=== PATIENT | male | born 1995 | race Caucasian/White ===

== ENCOUNTER 2023-06-26 16:24 | Emergency (ER) | payer BC, SELFPAY ==
[2023-06-26 16:28] VITALS: BP 186/100
--- NOTE | 2023-06-26 18:48 | ED.GENMED ---
History of Present Illness
General
Chief Complaint: Musculo-Skeletal Complaint
Source: patient
Exam Limitations: none
Time Seen by Provider: 06/26/23 18:23
Nursing documentation reviewed up to this point in time: agreed with
Travel History
Have you had any contact with someone who has COVID-19?: No
Do you have any symptoms of coronavirus? Fever > 100 degrees, chills, cough, shortness of breath, sore throat, loss of taste or smell, muscle aches, or headache?: No
History of Present Illness
History of Present Illness:
27-year-old male with no past medical history states at 3 PM today he was walking in the park when he developed lydq-poi-pvfdont feeling in his left upper arm and then shooting elcp-tfq-yfdoqbk feeling down the arm into the hand. This slowly
subsided and at this time he has just mild residual for rpin-pbz-tdsnznl in the inner aspect of his left forearm and his fingers.
He has had similar episodes in the past in the opposite arm.
He denies neck pain or any recent overuse or injury.
Past History
Past History
ED Past Medical History: None
ED Past Surgical History: None
Social History
Tobacco: Non-smoker
Alcohol: None
Drug: Marijuana
Personal: Single
Living: with family
Employment: Employed
Review of Systems
Review of Systems
Allergies reviewed?: Yes
All Other Systems: ROS reviewed and negative except as documented in HPI and ROS
Respiratory: Denies trouble breathing
Cardiac: Denies chest pain
ABD/GI: Denies abdominal pain or nausea
Musculoskeletal: Denies joint swelling or neck pain
Skin: Reports no symptoms
Neurological: Reports other (Qxkj-qtq-bgqmybk feeling down left arm, resolving); Denies weakness
Phy Exam
Physical Exam
Physical Exam:
GENERAL: No acute distress. A&Ox3.
CONSTITUTIONAL: Afebrile.
EYES: Clear, conjunctivae normal
Neck: Supple
ENMT: moist mucus membranes, Pharynx nl
RESPIRATORY: Regular respirations, nonlabored, lungs clear.
CARDIOVASCULAR: Regular rate and rhythm, no murmurs, no rubs.
MUSCULOSKELETAL: No spinal bony tenderness, neck with full range of motion and nontender to palpation. Full range of motion of both upper extremities, . Strength equal bilaterally 5/5. Moves with ease. Well perfused.
SKIN: Warm, dry, pink
PSYCH: Normal mood and affect. Well kept, interactive and appropriate
NEUROLOGIC: Awake, alert and oriented. No focal neurological deficits
Course
Orders/Labs/Results
Orders:
Orders
06/26/23 16:29
EKG [Electrocardiogram (*1)] Urgent
Reason for Study: Other
Other Reason for Exam: arm numbness
EKG- Treatment ONCE
Vital Signs
Initial and Last Documented VS:
Initial Vital Signs
Temp Pulse Resp BP Pulse Ox
98.8 F 96 17 186/100 99
06/26/23 16:28 06/26/23 16:28 06/26/23 16:28 06/26/23 16:28 06/26/23 16:28
Last Documented Vital Signs
Temp Pulse Resp BP Pulse Ox
98.8 F 89 16 153/89 99
06/26/23 16:28 06/26/23 18:55 06/26/23 18:55 06/26/23 18:55 06/26/23 18:55
MDM/Problems Addressed
Differential Diagnosis Includes:
Cervical radiculopathy,
MDM/Problems Addressed:
27-year-old male with no past medical history states at 3 PM today he was walking in the park when he developed rsah-nxb-ephqymi feeling in his left upper arm and then shooting dpdc-gnj-xhmypvs feeling down the arm into the hand. This slowly
subsided and at this time he has just mild residual for dyan-mup-kbhpuic in the inner aspect of his left forearm and his fingers.
He has had similar episodes in the past in the opposite arm.
He denies neck pain or any recent overuse or injury.
EKG NSR
06/26/2023 1853 PM
Patient reassured that his EKG is normal, his symptoms are dissipating and very mild at this time.
He had no associated symptoms. No suspicion of cardiac etiology. No indication for further workup at this time.
*Critical Care Note
Total Time (30-74mins, 75-104mins- exclusive of procedures): Not Applicable
ED Attending Note
-
Portions of this chart may have been created with voice recognition software.� Occasional wrong word or��sound alike� substitutions may have occurred due to the inherent limitations of voice recognition software.
Discharge Plan
Departure
Patient Disposition: Home (Routine Discharge)
Date of Disposition: 06/26/23
Time of Disposition: 18:45
Patient with high blood pressure during this ER visit?: Yes
Condition: Good
Discharge Problem:
Radiculopathy of arm
Instructions: Radiculopathy, BLOOD PRESSURE
Prescriptions:
No Action
ranitidine HCl [Zantac 75] 75 MG tablet
75 mg PO DAILY Qty: 20 0RF
diphenhydramine HCl [Banophen] 25 MG capsule
25 mg PO Q4HPRN PRN (Reason: rash, itching) Qty: 10 0RF
prednisone 50 MG tablet
50 mg PO DAILY Qty: 5 0RF
epinephrine [EpiPen] 0.3 MG/0.3/SYRINGE auto-injector
0.3 mg IM .STAT PRN (Reason: difficulty Breathing) Qty: 1 0RF
albuterol sulfate [Albuterol Sulfate HFA] 18 GM HFA aerosol inhaler
18 gm inhalation Q4 Qty: 1 0RF
Referrals:
NONE,* [Family Provider] -
Activity Restrictions/Additional Instructions:
As we discussed, this is most likely radiculopathy possibly coming from the cervical spine. See your doctor in 1 week if your symptom has not 100% resolved.
Your EKG is normal
Your blood pressure was a little high. Check it at home under calm circumstances. It should be below 130/90, best if 120/80.
If it remains above 130/80, see your doctor for further evaluation.
Interventions
Interventions:
*Risk Screen - Suicide Last Done: 06/26/23 16:28
*General Assessment Last Done: 06/26/23 16:28
*Neglect/Abuse Screening Last Done: 06/26/23 16:28
ED- Fall Risk Assessment Last Done: 06/26/23 19:23
*ED COVID-19 Vaccine History Last Done: 06/26/23 16:28
*Nursing Disposition Last Done: 06/26/23 19:23
ED-Musculoskeletal Assessment Last Done: 06/26/23 18:29
Discharge Date and Time
Discharge Date/Time: 06/26/23 19:24
[2023-06-26 18:55] VITALS: BP 153/89
== END 2023-06-26 19:24 | disposition home or self-care (01) ==
LOC: EMR 16:24
PROVIDERS: EMERGENCY PHYSICIAN Emergency Medicine
DX: M54.12 Radiculopathy, cervical region (principal); R03.0 Elevated blood-pressure reading, without diagnosis of hypertension
CPT/HCPCS: 99283; 93005

== ENCOUNTER → 2023-10-21 14:57 | Outpatient (REF) | payer OTHER, SELFPAY | LOC: RAD 14:57 | PROVIDERS: ATTENDING PHYSICIAN Physician Assistant | DX: S05.50XA Penetrating wound with foreign body of unspecified eyeball, initial encounter (principal) | CPT/HCPCS: 70030 ==